=== PATIENT | female | born 1985 | race Two or more races ===

== ENCOUNTER 2019-04-02 15:20 | Emergency (ER) | payer SELFPAY ==
[~2019-04-02] VITALS: Ht 152.4 cm; Wt 65.8 kg
[2019-04-02 15:43] LABS: BILIRUBIN,URINE NEGATIVE (NEG); CLARITY,URINE CLEAR; COLOR,URINE YELLOW; NITRITE,URINE NEGATIVE (NEG); PROTEIN,URINE NEGATIVE (NEG-TRACE); UROBILINOGEN,URINE 0.2 mg/dL (0.2 mg/dL)
--- NOTE | 2019-04-02 15:51 | PHYS DOC ---
Adult General Chief Complaint Chief Complaint: HEMATEMESIS/VOMITING BLOOD HPI HPI Patient is a 34 year old female with no significant medical history who presents to the ED today complaining of mild right upper quadrant abdominal pain with nausea vomiting that began 4 days ago. Patient states her symptoms are worse after eating. Patient denies anything specifically alleviating her symptoms. She states yesterday she vomited hard enough and had some blood in her vomit. Denies being on any anticoagulants or NSAIDs. (DOMINIQUE CLIFFORD APRN) Review of Systems Review of Systems Constitutional: Denies fever or chills [] Eyes: Denies change in visual acuity, redness, or eye pain [] HENT: Denies nasal congestion or sore throat [] Respiratory: Denies cough or shortness of breath [] Cardiovascular: No additional information not addressed in HPI [] GI: Reports right upper quadrant abdominal pain, nausea, vomiting, denies bloody stools or diarrhea [] : Denies dysuria or hematuria [] Musculoskeletal: Denies back pain or joint pain [] Integument: Denies rash or skin lesions [] Neurologic: Denies headache, focal weakness or sensory changes [] All other systems were reviewed and found to be within normal limits, except as documented in this note. (DOMINIQUE CLIFFORD APRN) Current Medications Current Medications Current Medications Medications (Trade) Dose Ordered Sig/Steven Start Time Stop Time Status Last Admin Dose Admin Famotidine (Pepcid Vial) 20 mg 1X ONCE 04/02/19 16:15 04/02/19 16:16 DC 04/02/19 16:08 20 MG Fentanyl Citrate (Fentanyl 2ml Vial) 50 mcg 1X ONCE 04/02/19 17:15 04/02/19 17:16 DC 04/02/19 17:14 50 MCG Ondansetron HCl (Zofran) 4 mg 1X ONCE 04/02/19 16:15 04/02/19 16:16 DC 04/02/19 16:07 4 MG Sodium Chloride 1,000 ml @ 1,000 mls/hr 1X ONCE 04/02/19 16:15 04/02/19 17:14 DC 04/02/19 16:08 1,000 MLS/HR (ALEJANDRO AMEZCUA MD) Allergies Allergies Allergies Coded Allergies Type Severity Reaction Last Updated Verified No Known Drug Allergies 04/02/19 No (ALEJANDRO AMEZCUA MD) Physical Exam Physical Exam Constitutional: Well developed, well nourished, no acute distress, non-toxic appearance. [] HENT: Normocephalic, atraumatic, bilateral external ears normal, oropharynx m oist, no oral exudates, nose normal. [] Eyes: PERRLA, EOMI, conjunctiva normal, no discharge. [] Neck: Normal range of motion, no tenderness, supple, no stridor. [] Cardiovascular:Heart rate regular rhythm, no murmur [] Lungs & Thorax: Bilateral breath sounds clear to auscultation [] Abdomen: Bowel sounds normal, soft, mild tenderness in the right upper quadrant with positive Barnes sign, no right lower quadrant tenderness, no guarding, no rebound pain or tenderness, no masses, no pulsatile masses. [] Skin: Warm, dry, no erythema, no rash. [] Back: No tenderness, no CVA tenderness. [] Extremities: No tenderness, no cyanosis, no clubbing, ROM intact, no edema. [] Neurologic: Alert and oriented X 3, normal motor function, normal sensory function, no focal deficits noted. [] Psychologic: Affect normal, judgement normal, mood normal. [] (DOMINIQUE CLIFFORD APRN) Current Patient Data Vital Signs Vital Signs Date Time Temp Pulse Resp B/P (MAP) Pulse Ox O2 Delivery O2 Flow Rate FiO2 04/02/19 18:00 78 18 103/60 (74) 99 Room Air 04/02/19 16:10 98.8 98.8 (ALEJANDRO AMEZCUA MD) Lab Values Laboratory Tests Test 04/02/19 15:30 04/02/19 16:35 Urine Collection Type Unknown Urine Color Yellow Urine Clarity Clear Urine pH 7.0 Urine Specific [place] 1.015 Urine Protein Negative mg/dL (NEG-TRACE) Urine Glucose (UA) Negative mg/dL (NEG) Urine Ketones (Stick) Negative mg/dL (NEG) Urine Blood Negative (NEG) Urine Nitrite Negative (NEG) Urine Bilirubin Negative (NEG) Urine Urobilinogen Dipstick 0.2 mg/dL (0.2 mg/dL) Urine Leukocyte Esterase Negative (NEG) Urine RBC 0 /HPF (0-2) Urine WBC 0 /HPF (0-4) Urine Squamous Epithelial Cells Occ /LPF Urine Bacteria Few /HPF (0-FEW) Urine Opiates Screen Neg (NEG) Urine Methadone Screen Neg (NEG) Urine Barbiturates Neg (NEG) Urine Phencyclidine Screen Neg (NEG) Urine Amphetamine/Methamphetamine Neg (NEG) Urine Benzodiazepines Screen Neg (NEG) Urine Cocaine Screen Neg (NEG) Urine Cannabinoids Screen Neg (NEG) Urine Ethyl Alcohol Neg (NEG) White Blood Count 6.0 x10^3/uL (4.0-11.0) Red Blood Count 3.52 x10^6/uL (3.50-5.40) Hemoglobin 11.8 g/dL (12.0-15.5) L Hematocrit 34.2 % (36.0-47.0) L Mean Corpuscular Volume 97 fL (79-100) Mean Corpuscular Hemoglobin 34 pg (25-35) Mean Corpuscular Hemoglobin Concent 35 g/dL (31-37) Red Cell Distribution Width 12.6 % (11.5-14.5) Platelet Count 237 x10^3/uL (140-400) Neutrophils (%) (Auto) 66 % (31-73) Lymphocytes (%) (Auto) 26 % (24-48) Monocytes (%) (Auto) 7 % (0-9) Eosinophils (%) (Auto) 1 % (0-3) Basophils (%) (Auto) 0 % (0-3) Neutrophils # (Auto) 4.0 x10^3/uL (1.8-7.7) Lymphocytes # (Auto) 1.6 x10^3/uL (1.0-4.8) Monocytes # (Auto) 0.4 x10^3/uL (0.0-1.1) Eosinophils # (Auto) 0.0 x10^3/uL (0.0-0.7) Basophils # (Auto) 0.0 x10^3/uL (0.0-0.2) Sodium Level 139 mmol/L (136-145) Potassium Level 3.6 mmol/L (3.5-5.1) Chloride Level 104 mmol/L (98-107) Carbon Dioxide Level 25 mmol/L (21-32) Anion Gap 10 (6-14) Blood Urea Nitrogen 11 mg/dL (7-20) Creatinine 0.6 mg/dL (0.6-1.0) Estimated GFR (Cockcroft-Gault) 113.8 BUN/Creatinine Ratio 18 (6-20) Glucose Level 86 mg/dL (70-99) Calcium Level 8.3 mg/dL (8.5-10.1) L Total Bilirubin 0.5 mg/dL (0.2-1.0) Aspartate Amino Transferase (AST) 15 U/L (15-37) Alanine Aminotransferase (ALT) 25 U/L (14-59) Alkaline Phosphatase 92 U/L (46-116) Total Protein 6.8 g/dL (6.4-8.2) Albumin 3.6 g/dL (3.4-5.0) Albumin/Globulin Ratio 1.1 (1.0-1.7) Lipase 83 U/L (73-393) Ethyl Alcohol Level < 3 mg/dL (0-10) Laboratory Tests 04/02/19 16:35 Laboratory Tests 04/02/19 16:35 (ALEJANDRO AMEZCUA MD) Lab Values Laboratory Tests Test 04/02/19 15:30 04/02/19 16:35 Urine Collection Type Unknown Urine Color Yellow Urine Clarity Clear Urine pH 7.0 Urine Specific [place] 1.015 Urine Protein Negative mg/dL (NEG-TRACE) Urine Glucose (UA) Negative mg/dL (NEG) Urine Ketones (Stick) Negative mg/dL (NEG) Urine Blood Negative (NEG) Urine Nitrite Negative (NEG) Urine Bilirubin Negative (NEG) Urine Urobilinogen Dipstick 0.2 mg/dL (0.2 mg/dL) Urine Leukocyte Esterase Negative (NEG) Urine RBC 0 /HPF (0-2) Urine WBC 0 /HPF (0-4) Urine Squamous Epithelial Cells Occ /LPF Urine Bacteria Few /HPF (0-FEW) Urine Opiates Screen Neg (NEG) Urine Methadone Screen Neg (NEG) Urine Barbiturates Neg (NEG) Urine Phencyclidine Screen Neg (NEG) Urine Amphetamine/Methamphetamine Neg (NEG) Urine Benzodiazepines Screen Neg (NEG) Urine Cocaine Screen Neg (NEG) Urine Cannabinoids Screen Neg (NEG) Urine Ethyl Alcohol Neg (NEG) White Blood Count 6.0 x10^3/uL (4.0-11.0) Red Blood Count 3.52 x10^6/uL (3.50-5.40) Hemoglobin 11.8 g/dL (12.0-15.5) L Hematocrit 34.2 % (36.0-47.0) L Mean Corpuscular Volume 97 fL (79-100) Mean Corpuscular Hemoglobin 34 pg (25-35) Mean Corpuscular Hemoglobin Concent 35 g/dL (31-37) Red Cell Distribution Width 12.6 % (11.5-14.5) Platelet Count 237 x10^3/uL (140-400) Neutrophils (%) (Auto) 66 % (31-73) Lymphocytes (%) (Auto) 26 % (24-48) Monocytes (%) (Auto) 7 % (0-9) Eosinophils (%) (Auto) 1 % (0-3) Basophils (%) (Auto) 0 % (0-3) Neutrophils # (Auto) 4.0 x10^3/uL (1.8-7.7) Lymphocytes # (Auto) 1.6 x10^3/uL (1.0-4.8) Monocytes # (Auto) 0.4 x10^3/uL (0.0-1.1) Eosinophils # (Auto) 0.0 x10^3/uL (0.0-0.7) Basophils # (Auto) 0.0 x10^3/uL (0.0-0.2) Sodium Level 139 mmol/L (136-145) Potassium Level 3.6 mmol/L (3.5-5.1) Chloride Level 104 mmol/L (98-107) Carbon Dioxide Level 25 mmol/L (21-32) Anion Gap 10 (6-14) Blood Urea Nitrogen 11 mg/dL (7-20) Creatinine 0.6 mg/dL (0.6-1.0) Estimated GFR (Cockcroft-Gault) 113.8 BUN/Creatinine Ratio 18 (6-20) Glucose Level 86 mg/dL (70-99) Calcium Level 8.3 mg/dL (8.5-10.1) L Total Bilirubin 0.5 mg/dL (0.2-1.0) Aspartate Amino Transferase (AST) 15 U/L (15-37) Alanine Aminotransferase (ALT) 25 U/L (14-59) Alkaline Phosphatase 92 U/L (46-116) Total Protein 6.8 g/dL (6.4-8.2) Albumin 3.6 g/dL (3.4-5.0) Albumin/Globulin Ratio 1.1 (1.0-1.7) Lipase 83 U/L (73-393) Ethyl Alcohol Level < 3 mg/dL (0-10) Laboratory Tests 04/02/19 16:35 Laboratory Tests 04/02/19 16:35 (DOMINIQUE CLIFFORD APRN) EKG EKG [] (DOMINIQUE CLIFFORD APRN) Radiology/Procedures Radiology/Procedures []PROCEDURE: ABDOMEN LTD Limited ultrasound abdomen 04/02/2019 INDICATION: Right upper quadrant abdominal pain. COMPARISON: None available. TECHNIQUE: Sonographic evaluation of the right upper quadrant was performed utilizing grayscale and color Doppler. FINDINGS: Visualized portions of the pancreas appear normal. IVC and aorta are patent. There is normal echogenicity of the hepatic parenchyma. No suspicious hepatic mass. Right hepatic lobe measures 17.5 cm. There is hepatopedal flow within the portal venous system. Common bile duct measures 2 mm. No intrahepatic or extrahepatic biliary ductal dilatation. Gallbladder is normal in appearance without gallstones or gallbladder wall thickening. There is no pericholecystic fluid. Positive sonographic Barnes sign. Right kidney measures 9.6 x 4.4 x 3.9 cm. No free fluid is identified the right upper quadrant. IMPRESSION: Positive sonographic Barnes sign without cholelithiasis. Further evaluation with hepatobiliary scintigraphy may be of benefit. Electronically signed by: Rey Vaz MD (04/02/2019 4:32 PM) [id number] DICTATED and SIGNED BY: REY VAZ MD DATE: 04/02/19 1632 (DOMINIQUE CLIFFORD APRN) Course & Med Decision Making Course & Med Decision Making Pertinent Labs and Imaging studies reviewed. (See chart for details) This is a 34-year-old female patient presenting to the ED today with right upper quadrant abdominal pain, nausea, vomiting with slight blood, symptoms began four days ago. Limited right upper quadrant ultrasound Positive sonographic Barnes sign without cholelithiasis. Further evaluation with hepatobiliary scintigraphy may be of benefit. CBC with a normal WBC, hemoglobin 11.8, hematocrit 34.2. CMP no acute findings, urine analysis is negative for infection. Patient was discharged to home, provided general surgery for follow-up. Zofran recommended, Pepcid also recommended. Discussed dietary measures related to cholelithiasis. (DOMINIQUE CLIFFORD APRN) Course & Med Decision Making Staff Physician Addendum: I was working in the ER during the course of this patient's visit. I was available for consultation as needed, but I was not directly involved in the care of this patient. (ALEJANDRO AMEZCUA MD) Dragon Disclaimer Dragon Disclaimer This electronic medical record was generated, in whole or in part, using a voice recognition dictation system. (DOMINIQUE CLIFFORD APRN) Departure Departure Impression: Primary Impression: Abdominal pain Additional Impression: Cholelithiasis Disposition: 01 HOME, SELF-CARE Condition: STABLE Referrals: OTILIO LIZARRAGA MD follow up in 1 week Patient Instructions: Cholelithiasis, [id number] Additional Instructions: You were evaluated in the emergency room and noted to have gallbladder disease. We highly recommend you follow-up with the general surgeon provided. Avoid fatty greasy foods. Come back to the ED at any point symptoms worsen. Scripts Acetaminophen With Codeine (TYLENOL WITH CODEINE #3 TABLET) 1 Each Tablet 1 TAB PO PRN Q6HRS PRN for PAIN, #30 TAB Prov: DOMINIQUE CLIFFORD APRN 04/02/19 Famotidine (FAMOTIDINE) 20 Mg Tablet 20 MG PO DAILY, #14 TAB Prov: DOMINIQUE CLIFFORD APRN 04/02/19 Ondansetron Hcl (ZOFRAN) 4 Mg Tablet 1 TAB PO Q6HRS, #20 TAB Prov: DOMINIQUE CLIFFORD APRN 04/02/19 Problem Qualifiers Primary Impression: Abdominal pain Abdominal location: right upper quadrant Qualified Codes: R10.11 - Right upper quadrant pain Additional Impression: Cholelithiasis Cholelithiasis location: gallbladder Cholecystitis presence: without cholecystitis Biliary obstruction: with biliary obstruction Qualified Codes: K80.21 - Calculus of gallbladder without cholecystitis with obstruction DOMINIQUE CLIFFORD APRN Apr 02, 2019 15:51 ALEJANDRO AMEZCUA MD Apr 02, 2019 23:26
[2019-04-02 15:52] LABS: AMPHETAMINE/METHAMPHETAMINE NEG (NEG); BACTERIA,URINE FEW /HPF (0-FEW); BARBITURATES NEG (NEG); BENZODIAZEPINES NEG (NEG); CANNABINOIDS NEG (NEG); COCAINE NEG (NEG); METHADONE NEG (NEG); OPIATES NEG (NEG); PHENCYCLIDINE NEG (NEG); RBC,URINE 0 /HPF (0-2); SQUAMOUS EPITHELIAL CELL,UR OCC /LPF; WBC,URINE 0 /HPF (0-4)
[2019-04-02] MEDS ORDERED: ONDANSETRON PF 4 MG/2 ML VIAL. IV ONE (16:15)
[2019-04-02] MEDS ORDERED: IV NORMAL SALINE 1000ML BAG 1,000 ML IV ONE (16:15)
[2019-04-02] MEDS ORDERED: FAMOTIDINE 20 MG/2 ML VIAL IVP ONE (16:15)
--- NOTE | 2019-04-02 16:35 | RAD ---
Limited ultrasound abdomen 04/02/2019 INDICATION: Right upper quadrant abdominal pain. COMPARISON: None available. TECHNIQUE: Sonographic evaluation of the right upper quadrant was performed utilizing grayscale and color Doppler. FINDINGS: Visualized portions of the pancreas appear normal. IVC and aorta are patent. There is normal echogenicity of the hepatic parenchyma. No suspicious hepatic mass. Right hepatic lobe measures 17.5 cm. There is hepatopedal flow within the portal venous system. Common bile duct measures 2 mm. No intrahepatic or extrahepatic biliary ductal dilatation. Gallbladder is normal in appearance without gallstones or gallbladder wall thickening. There is no pericholecystic fluid. Positive sonographic Barnes sign. Right kidney measures 9.6 x 4.4 x 3.9 cm. No free fluid is identified the right upper quadrant. IMPRESSION: Positive sonographic Barnes sign without cholelithiasis. Further evaluation with hepatobiliary scintigraphy may be of benefit. Electronically signed by: Carmel Allison MD (04/02/2019 4:32 PM) [id number]
[2019-04-02 16:54] LABS: BASO % 0 % (0-3); EOS % 1 % (0-3); HEMATOCRIT 34.2 % (36.0-47.0); HEMOGLOBIN 11.8 g/dL (12.0-15.5); LYMPH # 1.6 x10^3/uL (1.0-4.8); LYMPH % 26 % (24-48); MEAN CORPUSCULAR HEMOGLOBIN 34 pg (25-35); MEAN CORPUSCULAR HGB CONC 35 g/dL (31-37); MEAN CORPUSCULAR VOLUME 97 fL (79-100); MONO # 0.4 x10^3/uL (0.0-1.1); MONO % 7 % (0-9); NEUT % 66 % (31-73); PLATELET COUNT 237 x10^3/uL (140-400); RED BLOOD COUNT 3.52 x10^6/uL (3.50-5.40); RED CELL DISTRIBUTION WIDTH 12.6 % (11.5-14.5)
[2019-04-02 17:01] LABS: CALCIUM 8.3 mg/dL (8.5-10.1); CREATININE 0.6 mg/dL (0.6-1.0); GFR 113.8; POTASSIUM 3.6 mmol/L (3.5-5.1)
[2019-04-02 17:15] LABS: ALBUMIN 3.6 g/dL (3.4-5.0); ALBUMIN/GLOBULIN RATIO 1.1 (1.0-1.7); TOTAL BILIRUBIN 0.5 mg/dL (0.2-1.0); TOTAL PROTEIN 6.8 g/dL (6.4-8.2)
[2019-04-02] MEDS ORDERED: fentaNYL PF VIAL 100 MCG/2 ML VIAL IV ONE (17:15)
[2019-04-02 18:00] VITALS: BP 103/60
[2019-04-02] MEDS ORDERED: FAMO20TA5 PO (18:09)
[2019-04-02] MEDS ORDERED: ONDA4TAB7 PO (18:09)
[2019-04-02] MEDS ORDERED: ACET-704 PO (18:09)
== END 2019-04-02 18:21 | disposition home or self-care (01) ==
LOC: ER 15:20
DX: K80.20 Calculus of gallbladder without cholecystitis without obstruction (principal); R11.2 Nausea with vomiting, unspecified
CPT/HCPCS: 36415; 76705; 80053; 80307; 81001; 83690; 85025; 96361; 96374; 96375; 99285; G0480; J2405; J3010; J3490; J7030